=== PATIENT | male | born 1980 ===

== ENCOUNTER 2024-11-23 00:34 | Emergency (ER) | payer OTHER, SELFPAY ==
[2024-11-23 00:39] VITALS: BP 119/62; PULSE 86; RESP 16; TEMP 36.6; O2SAT 98; BMI 22.8
--- NOTE | 2024-11-23 01:25 | ED_ITS ---
HPI - General Adult General Chief complaint: Animal Bite Stated complaint: tick bite Time Seen by Provider: 11/23/24 00:53 Source: patient Mode of arrival: ambulatory Limitations: no limitations History of Present Illness ED Provider: DR. Sumner HPI narrative: 43-year-old male came in for evaluation of imbedded tick on his left upper quadrant abdominal area, unknown for how long it has imbedded for but patient think it could be over 2 days patient live at the farm at [place] with known Common deer tick and Lyme disease infestation. No fever, no chills. Patient used his mother doxycycline and took 200 mg before coming to the ED patient raises the concern of expiration of the doxycycline and he would like to take another 200 mg in the ED today. Related Data Allergies Allergy/AdvReac Type Severity Reaction Status Date / Time No Known Allergies Allergy Verified 11/23/24 00:43 Review of Systems Review of Systems: All other systems are reviewed and are negative Constitutional: Reports as per HPI and Reports no additional constitutional complaints Eyes: Reports as per HPI and Reports no additional eye complaints Reports system reviewed and no additional complaints, except as documented Cardiovascular: Reports as per HPI and Reports no additional cardiovascular complaints Respiratory: Reports as per HPI and Reports no additional respiratory complaints Gastrointestinal: Reports as per HPI and Reports no additional gastrointestinal complaints Genitourinary: Reports no additional female genitourinary complaints Musculoskeletal: Reports no additional musculoskeletal complaints Skin/Breast: Reports system reviewed and no additional complaints, except as docu Psychiatric: Reports no additional psychiatric complaints Endocrine: Reports no additional endocrine complaints Hematologic/Lymphatic: Reports no additional hematologic/lymphatic complaints Allergic/Immunologic: Reports no additional allergic/immunologic complaints Reports system reviewed and no additional complaints, except as documented and Reports Abnormal speech present [facility] Social History Social History Advance Directives: No Advance Directives Information Provided: No Physical Exam ED Vital Signs: Vital Signs - 24 hr 11/23/24 00:39 Temperature 97.8 F Pulse Rate 86 Respiratory Rate 16 Blood Pressure 119/62 Pulse Oximetry 98 Oxygen Delivery Method Room Air BMI result Body Mass Index 22.8 Vital signs have been reviewed and appear to be correct. Blood pressure elevated. Heart rate normal. Respiratory rate normal. Temperature normal. Oxygen saturation normal. Appearance: Alert. Oriented X3. No acute distress. Head: Normal external exam. Normocephalic. Atraumatic. No Ravi signs noted. No raccoon eyes noted Eyes: PERRLA. EOMI. Conjunctiva and sclera normal. Eyelids normal. ENT: TM's Normal. Pharynx normal. Uvula midline. Moist mucous membranes. No trismus noted. No drooling noted. No muffled voice noted. Neck: Normal inspection. Neck supple. FROM. No adenopathy. Thyroid Normal. No meningeal signs. No neck mass noted. CVS: Normal heart rate and rhythm. Heart sound normal. No murmurs noted. Pulses normal throughout. Respiratory: No respiratory distress. Painless inspiration. Breath sounds normal. No wheezes/rales/rhonchi noted. Chest nontender. No accessory muscle usage noted or decreased air movement noted. Abdomen: Soft and nontender. Bowel sounds normal in all 4 quadrants. No distention noted. A small tiny black dot imbedded in the left upper quadrant abdominal area, no cellulitis, no redness, no hotness, no fluctuation. No organomegaly noted. No visible injury noted. Back: No CVA tenderness. Full range of motion noted. Skin: Skin warm and dry. Normal skin color. Normal skin turgor. No rashes/lesions/lacerations noted. Extremities: No lower extremity edema. Extremities exhibit normal range of motion. Extremities nontender. Neuro: Oriented X 3. Cranial nerve exam: II-XII are grossly intact No motor deficit. No sensory deficit. Reflexes normal. Course Reevaluation(s) Reevaluation #1: S/p piece of take body imbedded in the skin that was removed in the ED. Will give 200 mg doxycycline prophylaxis. Lyme titer is pending. Patient was educated about Lyme disease and early signs to look for like rash, arthritis, erythema migraines, fever, headache, myalgia. Time: 01:31 Medical Decision Making Differential Diagnosis Differential Diagnoses: The differential diagnosis associated with the presentation includes (Infected tick bite, Lyme disease.) Admission/Observation Consideration of admission/observation: Escalation of care including admission/observation considered Discharge Plan Discharge Clinical Impression: Tick bite of abdomen Patient Disposition: Home, Self-Care Instructions: Tick Bite (ED) Additional Instructions: Look for fever, body ache, headache, any rash especially if it look like target sign and seek immediate medical attention if you detected any of the above symptoms Referrals: Noah Mcdonald MD [Primary Care Provider, Internal Medicine] Print Language: Czech
--- OUTSIDE RECORDS SUMMARY | 2024-11-23 01:28 | XMS_ITS | Clinical Summary ---
Author Organization [employer] Address [address] [facility] [address] [place] [address] Care Team Providers Care Metalizing Machine Operator Automatic Name Role Phone Unavailable Primary Care Provider Unavailabl e Social History Tobacco Use Types Packs/Day Years Used Date Smoking Tobacco: Never Assessed Sex and Gender Information Value Date Recorded Sex Assigned at Male 12/13/2021 10:16 AM EDT Legal Sex Male 10:16 AM EDT Gender Identity Male 12/13/2021 10:16 AM EDT Sexual Orientation Choose not to disclose 2021 10:16 AM EDT Plan of Treatment Health Maintenance Due Date Last Done Comments Depression Screening 1979 Lipid Panel 1979 Disability Screening 1979 Alcohol/Substance Use Screening 1991 Tobacco Screening 1991 Family Planning (PISQ) 12/02/1994 HPV Vaccines (1 - Male 3-dos e series) 12/02/1994 DTaP/Tdap/Td Vaccines (1 - Tdap) 12/02/1998 Hepatitis B Vaccines (1 of 3 - 19+ 3-dose series) 12/02/1998 COVID-19 Vaccine (1 - 2023-2 5 season) 2024 Influenza Vaccine (#1) 2024 Zoster Vaccines (1 of 2) 12/02/2029 RSV Patients and Pa tients Aged 60 years or older (1 - 1-dose 75+ series) 12/02/2054 HIB Vaccines Aged Out No longer eligi ble based on patient's age to complete this topic Hepatitis A Vaccines Aged Out No long er eligible based on patient's age to complete this topic IPV Vaccines Aged Out No longer eligi ble based on patient's age to complete this topic Meningococcal B Vaccine Aged Out No l onger eligible based on patient's age to complete this topic Meningococcal Vaccine Aged Out No quang arely eligible based on patient's age to complete this topic Pneumococcal Vaccine: Pediat rics (0 to 5 Years) and At-Risk Patients (6 to 49) Years Aged Out No longer eligible b ased on patient's age to complete this topic RSV under 20 months Aged Out No longe r eligible based on patient's age to complete this topic Rotavirus Vaccines Aged Out No longer eligible based on patient's age to complete this topic
--- OUTSIDE RECORDS SUMMARY | 2024-11-23 01:28 | XMS_ITS | Encounter Summary ---
Author Organization [facility] Address [address] [facility] [address] [facility] [address] [place] [id number] Phone Care Team Providers Care Driver Retraining Instructor Name Role Phone Murali Vu MD Primary Care Provider [phone] Reason for Visit * Reason Onset Date Comments Medication Refill 11/19/2024 Encounter Details Date Type Department Care Team (Late st Contact Info) Description 11/19/2024 Refill [facility] [address] [place] [address] [place] [address] Murali Vu MD [address] [facility] [place] [address] [email or web address] Medication Refill Social History Tobacco Use Types Packs/Day Years Used Date Smoking Tobacco: Former Cigarettes 0.5 4 0 05/24/1994 - 05/24/1998 Smokeless Tobacco: Never Alcohol Use Standard Drinks/Week Comments Not Currently 0 (1 standard drink = 0.6 oz pur e alcohol) Child or Family Care Answer Date Record ed Do you have problems with on e of the following making it difficult for you to work, study, or receive health care? No 05/24/2018 Education Answer Date Recorded Are you interested in more education? Not on nadya e 06/10/2022 Are you concerned about learning? Not on file 06/10/2022 No 06/10/2022 No 06/10/2022 Food Answer Date Recorded Within the past 6 months we worried whether our food would run out before we got money to buy more. Often True 05/24/2018 Within the past 6 months the food we bought just didn't last and we didn't have enough money to get more. Often True 9 Paying for Meds Answer Date Recorded Do you have trouble paying for medicines? I iris se not to answer 05/24/2018 Paying Utility Bills Answer Date Record ed Do you have trouble paying y our heating or electricity bill? I choose not to answer 05/24/2018 Transportation Answer Date Recorded Has the lack of transportati on kept you from medical appointments or from getting medications? I choose not to answer 05/24/2018 Digital Access Answer Date Recorded No 07/12/2022 No 07/12/2022 Reliable internet access at home? Not on file 07/12/2022 Device with a working camera? Not on file Sex and Gender Information Value Date Recorded Sex Assigned at Not on file Legal Sex Male 2:33 PM EDT Gender Identity Not on file Sexual Orientation Not on file documented as of this encounter Progress Notes * Suzette Jeronimo CMA - 11/19/2024 4:33 PM EDT Images from the original note were not included. Rx Care Gap Status - Instructions for Clinical Staff (prescriber discretion applies): > Mismatch review guide > No future appt: Please schedule if appropriate. > Check PDMP for all controlled medication requests. Visit Info Last visit: 06/17/2024 Murali Vu MD - Family Medicine [facility] > Requested f/u: Not specified Upcoming visit: None ACTIONS TAKEN BY Suzette Jeronimo CMA - Checked PDMP/[place]. Non-Opioid Controlled Substance With PDMP Rx Protocol - clonazepam Renewal is at prescriber discretion. Visit in the past 12 months: Yes documented in this encounter Plan of Treatment Not on file documented as of this encounter Visit Diagnoses Diagnosis Anxiety and depression documented in this encounter Care Teams Driver Retraining Instructor Relationship Specialty Start Date End Date Murali Vu MD [address] [place] [address], [address] [place] [address] PCP - General Internal Medicine 05/24/18 documented as of this encounter Additional Source Comments The information contained in this document represents components of the legal health record. It is not the complete legal health record.[facility]
--- OUTSIDE RECORDS SUMMARY | 2024-11-23 01:28 | XMS_ITS | Encounter Summary ---
Author Organization [employer] Address [address] [facility] [address] [place] [address] Care Team Providers Care Jinrikisha Driver Name Role Phone Unavailable Primary Care Provider Unavailabl e Encounter Details Date Type Department Care Team (Latest Contact Info) Description 01/15/2020 Abstract C CONVERSIONS Dental, Provider, DDS Social History Tobacco Use Types Packs/Day Years Used Date Smoking Tobacco: Never Assessed Sex and Gender Information Value Date Recorded Sex Assigned at Male 12/13/2021 10:16 AM EDT Legal Sex Male 10:16 AM EDT Gender Identity Male 12/13/2021 10:16 AM EDT Sexual Orientation Choose not to disclose 2021 10:16 AM EDT documented as of this encounter Plan of Treatment Not on file documented as of this encounter Visit Diagnoses Not on filedocumented in this encounter
--- OUTSIDE RECORDS SUMMARY | 2024-11-23 01:28 | XMS_ITS | Encounter Summary ---
Author Organization [facility] Address [address] [place] [address] Phone Care Team Providers Care Tosser Name Role Phone Murali Vu MD Primary Care Provider [phone] Murali Vu MD Unavailable [phone] Encounter Details Date Type Department Care Team (Late st Contact Info) Description 03/21/2022 Procedure Pass OR Admitting Dept - Virtual Department [address] [place] [address] Social History Tobacco Use Types Packs/Day Years [...] Answer Date Recorded Are you interested in help w ith more adult education (for example, completing high school, GED, job training, learning the French language, technical skills, or developing parenting skills)? No 05/24/2018 Are you concerned about learning? Not on file 05/24/2018 Not on file 05/24/2018 Not on file 05/24/2018 Food Answer Date Recorded Within the past [...] medications? I choose not to answer 05/24/2018 Sex and Gender Information Value Date Recorded Sex Assigned at Not on file Legal Sex Male 2:33 PM EDT Gender Identity Not on file Sexual Orientation Not on file documented as of this encounter Plan of Treatment Not on file documented as of this encounter Visit Diagnoses Not on filedocumented in this encounter Care Teams Tosser Relationship Specialty Start Date End Date Murali Vu MD [address] [place] [address], [address] [place] [address] PCP - General Internal Medicine 05/24/18 Murali Vu MD [address] [place] [address], [address] [place] [address] Insurance Assigned Provider 07/15/18 10/22/22 documented as of this encounter Additional Source Comments The information contained in this document represents components of the legal health record. It is not the complete legal health record.[facility]
--- OUTSIDE RECORDS SUMMARY | 2024-11-23 01:28 | XMS_ITS | Clinical Summary ---
Author Organization [facility] Address [address] [facility] [address] [place] [id number] Phone Care Team Providers Care Induction Coordination Power Engineer Name Role Phone Murali Vu MD Primary Care Provider [phone] Allergies Active Allergy Reactions Criticality Noted Date Comments Gluten Protein 05/24/2018 GI upset Medications therapeutic multivitamin tablet Take 1 tablet by mouth daily. Active ALPRAZolam (XANAX) 0.5 MG tabletIndication s:Anxiety and depression Take 1 tablet (0.5 mg total) by mouth daily as needed. 10 tablet 4 Active clonazePAM (KLONOPIN) 1 MG tabletIndication s:Anxiety and depression Take 1 tablet (1 mg total) by mouth 3 (three) times a day as needed for anxiety. For the afternoon dose, he will take 0.5 mg instead most days. 75 tablet 5 Active clonazePAM (KLONOPIN) 1 MG tabletIndication s:Anxiety and depression Take 1 tablet (1 mg total) by mouth 3 (three) times a day as needed for anxiety. For the afternoon dose, he will take 0.5 mg instead most days. 75 tablet 5 11/20/19 25 Discontin ued(Reord er) Active Problems Problem Noted Date Diagnosed Date Vaccination refused by patient 06/17/2024 Overview (06/17/2024): Has refused all vaccinations including flu, COVID, tetanus booster Refusal of care by patient 06/17/2024 Overview (06/17/2024): Donta states that he does not want to have yearly physicals or any kind of preventative care. He states philosophically that he enjoys his life but does not want anything done to prolong it, and prefers not to know. I challenged him somewhat on this, expressing my concern that he may lead a shorter life with undiagnosed illnesses that could be better managed by testing. Left inguinal hernia 01/18/2022 Poor concentration 10/30/2018 Overview (11/22/2018): Hx dyslexia Needs w/u for ADD Insurance did not cover for him to see Bethel Reyes bonny, but he has other numbers from [employer] and will book an appointment. Marijuana use, continuous 08/23/2018 Overview (01/29/2019): I spoke with him at length about marijuana, and its potential for aggravating thought disorders and paranoia, as well as anxiety. I suggested he consider tapering a lot, and doing a trial of no marijuana use for 2 to 4 weeks. He will consider. Jan 2019: He has cut way back on marijuana since October Subclinical hyperthyroidism 07/10/2018 Overview (10/05/2020): Recheck TSH given recent adrenaline feelings. September 2020. Labs have been reordered, but Donta has not had them done yet. Assessment & Plan (07/10/2018 10:54 AM EDT): The patient has subclinical hyperthyroid pattern with a suppressed TSH normal free T4 and free T3. It is possible that the TSH could have been suppressed by the use of prednisone possibly 2 months ago. It is worthwhile repeating the TSH with reflex free T4. He is been ruled out for Graves' disease but he has not been ruled out for Maggi's thyroiditis so I would like to check TPO and thyroglobulin antibodies. It does not appear that he has a thyroid nodule on physical exam so I doubt that he has an autonomous thyroid nodule. However if his TSH has not normalized and his TPO and thyroglobulin antibodies are within the reference range then I would not have an explanation and at that point we can consider obtaining an ultrasound of the thyroid gland to make sure that he does not have a posterior nodule and we can check thyroglobulin levels. I will ask him to return for follow-up in 2 to 4 weeks time. Anxiety and depression 05/24/2018 Overview (10/05/2020): We discussed clonazepam use, and I suggested that at this point he seems to be benefiting from twice a day clonazepam. He may even benefit from taking it every 8 hours if he feels that the effect wears off in the afternoon. October 2018: Doing well on klonopin, using marijuana around weekly. November 2018: Symptoms gradually worsening, will try low-dose sertraline. I recommend he make an appointment to see Dr. Humphries, because I believe his symptomatology is somewhat complex. January 2019: He opted not to meet with Dr. Humphries. He is happy with the change in sertraline. We will increase to 75 mg to try to give him further benefit. July 2019: Doing ok on klonopin and zoloft. May 2020: He has stopped the Zoloft, and feels ready to slowly wean the Klonopin. We will go back to a total of 2.5 mg daily of his Klonopin. June 2020: No wean for now, still very stressed. He will check on TMS and [employer]. September 2020: Stable on regular klonopin 2.5 tablets a day, and alternative tx. Declined TMS or psychotherapy. Encounters Date Type Department Care Team Description 11/19/[address] [place] [address] Murali Vu MD Medication Refill 09/02/2024 Refill [facility] [address] [place] [address] Yumiko Gonzales MA Medication Refill from Last 3 Months Immunizations No known immunizations Family History Medical History Relation Comments Depression Paternal Aunt Breast cancer Paternal Grandmother Depression Paternal Uncle Relation Status Comments Daughter Alive Father Alive Mother Alive Paternal Aunt Paternal Grandmother Paternal Uncle Son Alive Social History Tobacco Use Types Packs/Day Years [...] on file Sexual Orientation Not on file Last Filed Vital Signs Vital Sign Reading Time Taken Comments Blood Pressure 118/54 06/17/2024 9:49 AM EDT Pulse 97 06/17/2024 9:49 AM EDT Temperature 36.8 C (98.2 F) 06/17/2024 9:49 AM EDT Respiratory Rate - - Oxygen Saturation 99% 06/17/2024 9:49 AM EDT Inhaled Oxygen Concentration - - Weight 69.9 kg (154 lb) 06/17/2024 9:49 AM EDT Height 174 cm (5' 8.5 ) 06/17/2024 9:49 AM EDT Body Mass Index 23.07 06/17/2024 9:49 AM EDT Plan of Treatment Health Maintenance Due Date Last Done Comments Adult Td,Tdap Booster 1979 DEPRESSION SCREENING 1991 HEPATITIS C SCREENING 12/02/1997 HIV ONE-TIME SCREENING (18-6 5 YEARS) 12/02/1997 INFLUENZA VACCINE (#1) 2024 COVID-19 VACCINE (2024-2 6 season) 2024 LIPID PANEL 07/29/2027 07/28/2022, 07/28/2022 SMOKING STATUS SCREENING (On ce After 26 Yrs) Completed 06/17/2024 HEPATITIS A VACCINES Aged Out No long er eligible based on patient's age to complete this topic HIB VACCINES Aged Out No longer eligi ble based on patient's age to complete this topic MENINGOCOCCAL VACCINES (ACWY) Aged Out No longer eligible based on patient's age to complete this topic MENINGOCOCCAL VACCINES (B) Aged Out N o longer eligible based on patient's age to complete this topic PNEUMOCOCCAL VACCINES (0-49 years) Aged Out No longer eligible b ased on patient's age to complete this topic Medical Devices Not on file Procedures Procedure Name Priority Date/Time Associated Diagnosis Comments LIPID PANEL Routine 07/28/2022 12:35 PM EDT Anxiety and depression from Last 3 Months or Most Recently Relevant to Health Maintenance Results * (ABNORMAL) Lipid panel (07/28/2022 12:35 PM EDT) HDL 88 mg/dL [facility] Comment: Interpretation <40 mg/dL: Low HDL cholesterol (major risk factor for CHD) Greater than or equal to 60 mg/dL: High HDL cholesterol ( negative risk factor for CHD) HDL - cholesterol is affected by a number of factors, e.g. smoking, excerise, hormones, sex and age. CHOLESTEROL 173 0 - 240 mg/dL [facility] TRIGLYCERIDES 59 30 - 160 mg/dL [facility] LDL 73 50 - 129 mg/dL [facility] Comment: LDL levels in terms of risk for coronary heart disease: <100 mg/dL: Optimal 100-129 mg/dL: Near or above optimal 130-159 mg/dL: Borderline high 160-189 mg/dL: High >190 mg/dL: Very High CARDIAC RISK RATIO 2.0(L) 3.4 - 5.0 C [facility] Blood 07/28/2022 12:3 5 PM EDT 07/28/2022 12:37 PM EDT us Murali Vu MD LAB BLOOD ORDERABLES Final Resu lt [facility] [address] [place] [address] from Last 3 Months or Most Recently Relevant to Health Maintenance Insurance [employer] NON NSPG PCP [employer]CARE [employer] NON NSPG PCP SILVER [employer] CONNE[employer]CARE [employer] NON NSPG PCP SILVER CLARITY CONNECTORCARE [employer] NON NSPG PCP SILVER CLARITY CONNECTORCARE WELL[employer] NON NSPG PCP SILVER [employer]ARITY CONNECTORCARE [employer] NON NSPG PCP SILVER [employer] CONNECTORCARE Care Teams Induction Coordination Power Engineer Relationship Specialty Start Date End Date Murali Vu MD [address] [place] [address], [address] [place] [address] [email or web address] PCP - General Internal Medicine 05/24/18 Additional Source Comments The information contained in this document represents components of the legal health record. It is not the complete legal health record.[facility]
--- NOTE | 2024-11-23 02:13 | PC.NURSE ---
at time of d/c pt wanted to leave prior to lab draws, aware
[2024-11-23 02:14] VITALS: BP 119/62; PULSE 86; RESP 16; TEMP 36.6; O2SAT 98
== END 2024-11-23 02:14 | disposition home or self-care (01) ==
PROVIDERS: Emergency Provider Emergency Medicine; PCP Internal Medicine
DX: S30.861A Insect bite (nonvenomous) of abdominal wall, initial encounter (principal); W57.XXXA Bitten or stung by nonvenomous insect and other nonvenomous arthropods, initial encounter
CPT/HCPCS: 99283